=== PATIENT | female | born 2000 | race Two or more races ===

== ENCOUNTER 2020-12-13 21:55 | Emergency (ER) | payer OTHER ==
[~2020-12-13] VITALS: Ht 152.4 cm; Wt 54.4 kg
[2020-12-13 22:43] VITALS: BP 122/82
[2020-12-13] MEDS ORDERED: silver sulfADIAZINE 1% CREAM 25GM TUBE. TP ONE (23:45)
[2020-12-13] MEDS ORDERED: CEPHALEXIN 250 MG CAPSULE. PO ONE (23:45)
[2020-12-13] MEDS ORDERED: HYDROcodone/APAP 5/325MG 1 TAB TABLET PO ONE (23:45)
[2020-12-13] MEDS ORDERED: DIPH,PERTUSS(ACELL),TET VAC/PF 0.5 ML SYRINGE. VAX IM ONE (23:45)
[2020-12-14] MEDS ORDERED: CEPH500T PO (00:12)
[2020-12-14] MEDS ORDERED: SILV20CR14 TP (00:12)
[2020-12-14] MEDS ORDERED: IBUP-1007 PO (00:13)
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
== END 2020-12-14 00:47 | disposition home or self-care (01) ==
LOC: ER 21:55
DX: T22.211A Burn of second degree of right forearm, initial encounter (principal); X10.1XXA Contact with hot food, initial encounter; Y93.89 Activity, other specified; Y92.89 Other specified places as the place of occurrence of the external cause; Y99.8 Other external cause status
CPT/HCPCS: 16020; 90471; 90715; 99283; 99284